=== PATIENT | female | born 1995 | race Caucasian/White ===

== ENCOUNTER 2020-07-11 05:20 | Day surgery (SDC) | payer OTHER ==
[~2020-07-11] VITALS: Ht 160 cm; Wt 62.5 kg
[2020-07-11] MEDS ORDERED: NONE PER PT (06:06)
[2020-07-11] MEDS ORDERED: CHLORHEXIDINE 15 ML UDC ONE (06:09)
[2020-07-11 06:22] LABS: HCG UR SG 1.023 (1.003-1.030)
[2020-07-11 06:29] VITALS: BP 110/75
[2020-07-11] MEDS ORDERED: CHLORHEXIDINE 15 ML UDC PO ONE (06:30)
[2020-07-11] MEDS ORDERED: LACTATED RINGERS 1,000 ML IV SCH (06:30)
[2020-07-11] MEDS ORDERED: OXYMETAZOLINE NASAL SPRAY 0.05%,30ML ONE (06:44)
[2020-07-11] MEDS ORDERED: MIDAZOLAM 1 MG/ML, 2ML ONE (06:55)
[2020-07-11] MEDS ORDERED: FENTANYL PF 250 MCG/5ML ONE (06:55)
[2020-07-11] MEDS ORDERED: PROPOFOL 10 MG/ML, 20ML ONE (06:55)
[2020-07-11] MEDS ORDERED: DEXAMETHASONE 4 MG/ML, 1ML ONE ×2 (07:19→07:24)
[2020-07-11] MEDS ORDERED: ROCURONIUM 10MG/ML,5ML ONE (07:24)
[2020-07-11] MEDS ORDERED: ONDANSETRON 2MG/ML, 2ML ONE (07:24)
[2020-07-11] MEDS ORDERED: MEPERIDINE/PF 25MG/0.5ML IVPush PRN (08:00)
[2020-07-11] MEDS ORDERED: OXYcodone 5 MG/5 ML ORAL.SOL UDC PO PRN (08:00)
[2020-07-11] MEDS ORDERED: FENTANYL PF 100 MCG/2ML IV PRN (08:00)
[2020-07-11] MEDS ORDERED: ONDANSETRON 2MG/ML, 2ML IVPush PRN (08:00)
[2020-07-11] MEDS ORDERED: PROMETHAZINE 25 MG/ML, 1ML IVPush PRN (08:00)
[2020-07-11] MEDS ORDERED: ACETAMINOPHEN 325 MG TABLET PO PRN (08:00)
[2020-07-11] MEDS ORDERED: LABETALOL 5MG/ML, 20ML IV PRN (08:00)
[2020-07-11] MEDS ORDERED: HYDROmorphone 1 MG/ML, 1ML INJ IVPush PRN (08:00)
[2020-07-11] MEDS ORDERED: hydrALAzine 20 MG/ML, 1ML IV PRN (08:00)
[2020-07-11] MEDS ORDERED: MEPERIDINE/PF 25MG/ML,1ML ONE (08:32)
== END 2020-07-11 10:50 | disposition home or self-care (01) ==
LOC: OUT 05:20
PROVIDERS: ATTEND Otolaryngology
DX: J03.01 Acute recurrent streptococcal tonsillitis (principal); J35.01 Chronic tonsillitis; J35.8 Other chronic diseases of tonsils and adenoids; Z20.822 Contact with and (suspected) exposure to COVID-19; Z91.048 Other nonmedicinal substance allergy status; Z83.3 Family history of diabetes mellitus; Z82.49 Family history of ischemic heart disease and other diseases of the circulatory system
CPT/HCPCS: 42821; 81025; 87635; 88304; J1100; J2175; J2250; J2405; J2704; J3010; J7120